=== PATIENT | male | born 1995 | race Asian ===

== ENCOUNTER 2017-08-31 19:18 | Emergency (ER) | payer SELFPAY ==
[~2017-08-31] VITALS: Ht 160 cm; Wt 61.2 kg
--- NOTE | 2017-08-31 19:41 | PHYS DOC ---
Past Medical History Past Medical History: No Pertinent History Past Surgical History: No Surgical History Alcohol Use: None Drug Use: None Adult General Chief Complaint Chief Complaint: ABDOMINAL PAIN HPI HPI Patient is a 21 year old male presenting to the emergency department for evaluation of abdominal pain nausea and vomiting that has been going on for 3 weeks persistently. Pain is primarily epigastric sharp with no radiation but is causing him nonbloody nonbilious emesis. He says that he has been taking ibuprofen daily for the pain but seemed to make his pain worse. His any fevers chills diarrhea constipation dysuria hematuria or testicular pain. He denies any prior abdominal surgeries and he does not smoke drink or use drugs. He is in no obvious distress with normal vital signs. Review of Systems Review of Systems Constitutional: Denies fever. + chills [] Eyes: Denies change in visual acuity, redness, or eye pain [] HENT: Denies nasal congestion or sore throat [] Respiratory: Denies cough or shortness of breath [] Cardiovascular: No additional information not addressed in HPI [] GI: + abdominal pain, nausea, vomiting. No bloody stools or diarrhea [] : Denies dysuria or hematuria [] Musculoskeletal: Denies back pain or joint pain [] Integument: Denies rash or skin lesions [] Neurologic: Denies headache, focal weakness or sensory changes [] All other systems were reviewed and found to be within normal limits, except as documented in this note. Current Medications Current Medications Current Medications Medications (Trade) Dose Ordered Sig/Jana Start Time Stop Time Status Last Admin Dose Admin Fentanyl Citrate (Fentanyl 2ml Vial) 50 mcg 1X ONCE 08/31/17 19:45 08/31/17 19:46 DC 08/31/17 19:58 50 MCG Info (Do NOT chart on this entry -- for MONITORING) 1 each PRN DAILY PRN 08/31/17 19:45 09/02/17 19:44 Iohexol (Omnipaque 300 Mg/ml) 75 ml 1X ONCE 08/31/17 19:45 08/31/17 19:46 DC 08/31/17 20:12 75 ML Multi-Ingredient Mouthwash/Gargle (Gi Cocktail Single Dose) 15 ml 1X ONCE 08/31/17 19:45 08/31/17 19:46 DC 08/31/17 19:56 15 ML Ondansetron HCl (Zofran) 8 mg 1X ONCE 08/31/17 19:45 08/31/17 19:46 DC 08/31/17 20:02 8 MG Pantoprazole Sodium (PROTONIX VIAL for IV PUSH) 40 mg 1X ONCE 08/31/17 19:45 08/31/17 19:46 DC 08/31/17 20:02 40 MG Sodium Chloride 1,000 ml @ 1,000 mls/hr 1X ONCE 08/31/17 19:45 08/31/17 20:44 DC 08/31/17 19:45 1,000 MLS/HR Allergies Allergies Allergies Coded Allergies Type Severity Reaction Last Updated Verified No Known Drug Allergies 08/31/17 No Physical Exam Physical Exam Constitutional: Well developed, well nourished, no acute distress, non-toxic appearance. [] HENT: Normocephalic, atraumatic, bilateral external ears normal, oropharynx moist, no oral exudates, nose normal. [] Eyes: PERRLA, EOMI, conjunctiva normal, no discharge. [] Neck: Normal range of motion, no tenderness, supple, no stridor. [] Cardiovascular:Heart rate regular rhythm, no murmur [] Lungs & Thorax: Bilateral breath sounds clear to auscultation [] Abdomen: Bowel sounds normal, soft, + epigastric tenderness, no rebound or guarding, no masses, no pulsatile masses. [] Skin: Warm, dry, no erythema, no rash. [] Back: No tenderness, no CVA tenderness. [] Extremities: No tenderness, no cyanosis, no clubbing, ROM intact, no edema. [] Neurologic: Alert and oriented X 3, normal motor function, normal sensory function, no focal deficits noted. [] Current Patient Data Vital Signs Vital Signs Date Time Temp Pulse Resp B/P (MAP) Pulse Ox O2 Delivery O2 Flow Rate FiO2 08/31/17 20:20 93 18 127/73 (91) 97 Room Air 08/31/17 19:30 97.6 97.6 Lab Values Laboratory Tests Test 08/31/17 19:30 08/31/17 20:16 White Blood Count 12.7 x10^3/uL (4.0-11.0) H Red Blood Count 5.82 x10^6/uL (4.30-5.70) H Hemoglobin 16.6 g/dL (13.0-17.5) Hematocrit 50.2 % (39.0-53.0) Mean Corpuscular Volume 86 fL (79-100) Mean Corpuscular Hemoglobin 29 pg (25-35) Mean Corpuscular Hemoglobin Concent 33 g/dL (31-37) Red Cell Distribution Width 13.4 % (11.5-14.5) Platelet Count 262 x10^3/uL (140-400) Neutrophils (%) (Auto) 61 % (31-73) Lymphocytes (%) (Auto) 29 % (24-48) Monocytes (%) (Auto) 7 % (0-9) Eosinophils (%) (Auto) 2 % (0-3) Basophils (%) (Auto) 1 % (0-3) Neutrophils # (Auto) 7.8 x10^3uL (1.8-7.7) H Lymphocytes # (Auto) 3.6 x10^3/uL (1.0-4.8) Monocytes # (Auto) 0.9 x10^3/uL (0.0-1.1) Eosinophils # (Auto) 0.3 x10^3/uL (0.0-0.7) Basophils # (Auto) 0.1 x10^3/uL (0.0-0.2) Sodium Level 140 mmol/L (136-145) Potassium Level 3.2 mmol/L (3.5-5.1) L Chloride Level 99 mmol/L (98-107) Carbon Dioxide Level 29 mmol/L (21-32) Anion Gap 12 (6-14) Blood Urea Nitrogen 10 mg/dL (8-26) Creatinine 1.0 mg/dL (0.7-1.3) Estimated GFR (Cockcroft-Gault) 96.3 BUN/Creatinine Ratio 10 (6-20) Glucose Level 100 mg/dL (70-99) H Calcium Level 10.0 mg/dL (8.5-10.1) Magnesium Level 2.0 mg/dL (1.8-2.4) Total Bilirubin 0.7 mg/dL (0.2-1.0) Aspartate Amino Transferase (AST) 23 U/L (15-37) Alanine Aminotransferase (ALT) 35 U/L (16-63) Alkaline Phosphatase 65 U/L (46-116) Total Protein 9.0 g/dL (6.4-8.2) H Albumin 5.1 g/dL (3.4-5.0) H Albumin/Globulin Ratio 1.3 (1.0-1.7) Lipase 100 U/L (73-393) Urine Collection Type Unknown Urine Color Yellow Urine Clarity Hazy Urine pH 6.0 Urine Specific Harold >=1.030 Urine Protein Negative mg/dL (NEG-TRACE) Urine Glucose (UA) Negative mg/dL (NEG) Urine Ketones (Stick) Negative mg/dL (NEG) Urine Blood Negative (NEG) Urine Nitrite Negative (NEG) Urine Bilirubin Small (NEG) Urine Urobilinogen Dipstick 1.0 mg/dL (0.2 mg/dL) Urine Leukocyte Esterase Negative (NEG) Urine RBC 0 /HPF (0-2) Urine WBC 0 /HPF (0-4) Urine Bacteria 0 /HPF (0-FEW) Urine Mucus Marked /LPF Laboratory Tests 08/31/17 19:30 Laboratory Tests 08/31/17 19:30 EKG EKG [] Radiology/Procedures Radiology/Procedures [] Course & Med Decision Making Course & Med Decision Making Patient with nonspecific epigastric abdominal pain. We will check labs CT treat symptoms and reassess. Will transfer care to Dr. Velez at 1999. Lab and imaging reviewed. Abdomen remained soft and nontender and reevaluation. No hematemesis or coffee-ground emesis ED. Will treat for gastritis with close PCP follow-up. Return precautions reviewed. Patient verbalizes understanding of discharge instructions prior to departure. Dragon Disclaimer Dragon Disclaimer This electronic medical record was generated, in whole or in part, using a voice recognition dictation system. Departure Departure Impression: Primary Impression: Abdominal pain Additional Impression: Nausea & vomiting Disposition: HOME, SELF-CARE Condition: GOOD Referrals: FARRUKH ESTEBAN MD (PCP) Problem Qualifiers Primary Impression: Abdominal pain Abdominal location: epigastric Qualified Codes: R10.13 - Epigastric pain BHAVNA BUTTERFIELD DO Aug 31, 2017 19:41 ANSELMO VELEZ DO Aug 31, 2017 20:51
[2017-08-31] MEDS ORDERED: PANTOPRAZOLE IV PUSH 40 MG VIAL. IVP ONE (19:45)
[2017-08-31] MEDS ORDERED: IOHEXOL 300 MG/ML 100ML VIAL. IV ONE (19:45)
[2017-08-31] MEDS ORDERED: ONDANSETRON PF 4 MG/2 ML VIAL. IV ONE (19:45)
[2017-08-31] MEDS ORDERED: LIDO:MAALOX:DONNATAL 1:1:1 15 ML SINGLE DOSE SWSW ONE (19:45)
[2017-08-31] MEDS ORDERED: fentaNYL PF VIAL 100 MCG/2 ML VIAL IV ONE (19:45)
[2017-08-31] MEDS ORDERED: CONTRAST GIVEN MC PRN (19:45)
[2017-08-31] MEDS ORDERED: IV NORMAL SALINE 1000ML BAG 1,000 ML IV ONE (19:45)
[2017-08-31 19:52] LABS: BASO # 0.1 x10^3/uL (0.0-0.2); BASO % 1 % (0-3); EOS % 2 % (0-3); HEMATOCRIT 50.2 % (39.0-53.0); HEMOGLOBIN 16.6 g/dL (13.0-17.5); LYMPH # 3.6 x10^3/uL (1.0-4.8); LYMPH % 29 % (24-48); MEAN CORPUSCULAR HEMOGLOBIN 29 pg (25-35); MEAN CORPUSCULAR HGB CONC 33 g/dL (31-37); MEAN CORPUSCULAR VOLUME 86 fL (79-100); MONO % 7 % (0-9); NEUT % 61 % (31-73); PLATELET COUNT 262 x10^3/uL (140-400); RED BLOOD COUNT 5.82 x10^6/uL (4.30-5.70); RED CELL DISTRIBUTION WIDTH 13.4 % (11.5-14.5); WHITE BLOOD COUNT 12.7 x10^3/uL (4.0-11.0)
[2017-08-31 20:02] LABS: GFR 96.3; POTASSIUM 3.2 mmol/L (3.5-5.1)
[2017-08-31 20:08] LABS: ALBUMIN 5.1 g/dL (3.4-5.0); ALBUMIN/GLOBULIN RATIO 1.3 (1.0-1.7); TOTAL BILIRUBIN 0.7 mg/dL (0.2-1.0)
[2017-08-31 20:27] LABS: BILIRUBIN,URINE SMALL (NEG); GLUCOSE,URINE NEGATIVE (NEG); NITRITE,URINE NEGATIVE (NEG); PROTEIN,URINE NEGATIVE (NEG-TRACE)
[2017-08-31 20:32] LABS: BACTERIA,URINE 0 /HPF (0-FEW); RBC,URINE 0 /HPF (0-2); WBC,URINE 0 /HPF (0-4)
--- NOTE | 2017-08-31 20:40 | RAD ---
EXAM: Abdomen and pelvis CT with intravenous contrast. HISTORY: 21-year-old male with upper abdominal pain, nausea and vomiting for 4 days. TECHNIQUE: Computed tomographic images of the abdomen and pelvis were obtained following the administration of 75 cc of Omni 300 intravenous contrast. Multiplanar reformatting was performed. PQRS compliance statement: One or more of the following individualized dose reduction techniques were utilized for this examination: 1. Automated exposure control 2. Adjustment of the mA and/or kV according to patient size 3. Use of iterative reconstruction technique COMPARISON: None. FINDINGS: The lung bases demonstrate no acute finding. A tiny nodule is seen within the visualized right lower lung, likely incidental in this young patient. The liver, spleen, gallbladder, pancreas, adrenal glands and bilateral kidneys demonstrate no focal abnormality. The GI tract demonstrates no dilated bowel loops to suggest obstruction. The appendix is partially visualized abutting the medial posterior aspect of the cecum, appearing normal in caliber. The urinary bladder is mostly decompressed and not well evaluated. No intra-abdominal or pelvic free fluid, free air or significant lymphadenopathy is seen. Aorta is normal in caliber. Overlying soft tissues and visualized osseous structures demonstrate no acute or suspicious finding. IMPRESSION: No acute intra-abdominal or pelvic process seen. Electronically signed by: Trina Campos MD (08/31/2017 8:37 PM) [facility] [id number]
[2017-08-31 20:50] VITALS: BP 111/70
[2017-08-31] MEDS ORDERED: HYDROcodone/APAP 5/325MG 1 TAB TABLET PO ONE (21:15)
== END 2017-08-31 21:10 | disposition home or self-care (01) ==
LOC: ER 19:18
DX: R10.13 Epigastric pain (principal); R11.2 Nausea with vomiting, unspecified
CPT/HCPCS: 36415; 74177; 80053; 81001; 83690; 83735; 85025; 96361; 96374; 96375; 99285; C9113; J2405; J3010; J7030; Q9967

== ENCOUNTER 2020-11-12 18:56 | Emergency (ER) | payer SELFPAY ==
[~2020-11-12] VITALS: Ht 162.6 cm; Wt 80.9 kg
[2020-11-12 19:08] VITALS: BP 118/71
[2020-11-12] MEDS ORDERED: AMOXICILLIN/K CLAV 875/125MG TABLET. PO ONE (19:45)
[2020-11-12] MEDS ORDERED: PSEUDOEPHEDRINE 30 MG TABLET. PO PRN (19:45)
[2020-11-12] MEDS ORDERED: HYDROcodone/APAP 5/325MG 1 TAB TABLET PO ONE (19:45)
[2020-11-12] MEDS ORDERED: AMOX1TAB61 PO (20:01)
[2020-11-12] MEDS ORDERED: IBUP-1007 PO (20:01)
--- NOTE | 2020-11-12 20:02 | PHYS DOC ---
Past Medical History Past Medical History: No Pertinent History Past Surgical History: No Surgical History Smoking Status: Never Smoker Alcohol Use: None Drug Use: None General Adult EDM: Chief Complaint: EARACHE/EAR PAIN HPI: HPI: Patient is a 24 year old male presents emergency department complaining of ri ght ear pain. Patient states that he has had ear pain on the right side for the past week. Patient states he has been putting earwax removal drops in his ears and cleaning them out with Q-tips. Patient states he had a sudden onset of pain to his right ear when he was cleaning with a Q-tip. Patient denies any loss of hearing to his right ear, patient denies loss of hearing to either ear. Patient denies any dizziness or neurological changes. Patient denies any sore throat cough or congestion. Patient denies any recent illnesses. Patient denies chest pain, shortness of breath. Patient denies nausea vomiting diarrhea or rashes of her skin. Patient states she has not had a flu shot nor has he had a COVID-19 virus immunization this year. Patient rates his pain a 7/10 on a 1-10 pain scale. Review of Systems: Review of Systems: 14 body systems of review of systems have been reviewed. See HPI for pertinent positives and negative responses, otherwise all other systems are negative, nonpertinent or noncontributory. Heart Score: Risk Factors: Risk Factors: DM, Current or recent (<one month) smoker, HTN, HLP, family history of CAD, obesity. Risk Scores: Score 0 - 3: 2.5% MACE over next 6 weeks - Discharge Home Score 4 - 6: 20.3% MACE over next 6 weeks - Admit for Clinical Observation Score 7 - 10: 72.7% MACE over next 6 weeks - Early Invasive Strategies Allergies: Allergies: Allergies Coded Allergies Type Severity Reaction Last Updated Verified No Known Drug Allergies 08/31/17 No Physical Exam: PE: Constitutional: Well developed, well nourished, no acute distress, non-toxic appearance. HENT: Normocephalic, atraumatic, bilateral external ears normal, oropharynx moist, no oral exudates, nose normal. Left TM serous otitis media with effusion without purulent drainage or disruption of the tympanic membrane, right TM otitis media with effusion with purulent drainage, barotrauma to the 11 o'clock position. Eyes: PERRLA, EOMI, conjunctiva normal, no discharge. Neck: Normal range of motion, no tenderness, supple, no stridor. Cardiovascular:Heart rate regular rhythm, no murmur Lungs & Thorax: Bilateral breath sounds clear to auscultation Abdomen: Bowel sounds normal, soft, no tenderness, no masses, no pulsatile masses. Skin: Warm, dry, no erythema, no rash. Back: No tenderness, no CVA tenderness. Extremities: No tenderness, no cyanosis, no clubbing, ROM intact, no edema. Neurologic: Alert and oriented X 3, normal motor function, normal sensory function, no focal deficits noted. Psychologic: Affect normal, judgement normal, mood normal. Current Patient Data: Vital Signs: Vital Signs Date Time Temp Pulse Resp B/P (MAP) Pulse Ox O2 Delivery O2 Flow Rate FiO2 11/12/20 19:08 97.9 78 15 118/71 (87) 100 Room Air 97.9 EKG: EKG: [] Radiology/Procedures: Radiology/Procedures: [] Course & Med Decision Making: Course & Med Decision Making Pertinent Labs and Imaging studies reviewed. (See chart for details) 24-year-old male, vital signs reviewed, presents emergency department complaint of right ear pain. Examination concerning for barotrauma, patient states that he did stick a Q-tip in his ear and noticed a sudden onset of acute increased pain. Left TM concerning for serous otitis media without with effusion without purulent drainage, right TM showed a serous otitis media with effusion with purulent drainage from 11 o'clock position. Discussed findings with patient, encourage patient to not put any more eardrops into either ear, strongly encourage patient to not use Q-tips in the ear or any other cleaning utensils for his ears. Will start patient on Augmentin, Sudafed, ibuprofen, patient is to follow-up with ENT tomorrow or as soon as possible for reexamination of his right ear. Patient gave verbal understanding of discharge home instructions, follow-up with ENT tomorrow, return to ER precautions or concerns, had no further questions or concerns and was discharged home without incident. Shakilaon Disclaimer: Candi Disclaimer: This electronic medical record was generated, in whole or in part, using a voice recognition dictation system. Departure Departure Impression: Primary Impression: Serous otitis media of right ear with rupture of tympanic membrane Additional Impression: Serous otitis media Qualified Codes: H65.02 - Acute serous otitis media, left ear Disposition: 01 DC HOME SELF CARE/HOMELESS Condition: GOOD Referrals: FARRUKH ESTEBAN MD (PCP) YUSEF STANLEY MD, COLLEEN N MD Patient Instructions: Otitis Media with Effusion Additional Instructions: Please take antibiotic as prescribed, please contact an ENT specialist either Dr. Garcia or Dr. Link tomorrow for reexamination of your right ear. Do not place anything in either ear, do not get either ear wet. Do not use any eardrops in either ear until directed otherwise by a ENT specialist. Please return the emergency department for worsening symptoms or other concerns. Please purchase some [id number] Sudafed and take as directed, it should be behind the counter at the pharmacy, just ask your pharmacist about Sudafed. Tell your pharmacist that this for decongestant use EMERGENCY DEPARTMENT GENERAL DISCHARGE INSTRUCTIONS Thank you for coming to [facility] Emergency Department (ED) to day and trusting us with you care. We trust that you had a positive experience in our Emergency Department. If you wish to speak to the department management, you may call the Director at [phone]. YOUR FOLLOW UP INSTRUCTIONS ARE FOLLOWS: 1. Do you have a private Doctor? If you do not have a private doctor, please ask for a resource list of physicians or clinics that may be able to assist you with follow up care. 2. The Emergency Physicain has interpreted your x-rays. The X-Ray specialist will also review them. If there is a change in the findings, you will be notified in 48 hours when at all possible. 3. A lab test or culture has been done, your results will be reviewed and you will be notified if you need a change in treatment. ADDITIONAL INSTRUCTIONS AND INFORMATION: 1. Your care today has been supervised by a physician who is specially trained in emergency care. Many problems require more than one evaluation for a complete diagnosis and treatment. We recommend that you schedule your follow up appointment as recommended to ensure complete treatment of you illness or injury. If you are unable to obtain follow up care and continue to have a problem, or if your condition worsens, we recommend that you return to the ED. 2. We are not able to safely determine your condition over the phone nor are we able to give sound medical advice over the phone. For these safety reasons, if you call for medical advice we will ask you to come to the ED for further evaluation. 3. If you have any questions regarding these discharge instructions please call the ED at [phone]. SAFETY INFORMATION: In the interest of safety, wellness, and injury prevention; we encourage you to wear your sealbelt, if you smoke; quite smoking, and we encourage family to use a protective helmet for bicycling and other sporting events that present an increased risk for head injury. IF YOUR SYMPTOMS WORSEN OR NEW SYMPTOMS DEVELOP, OR YOU HAVE CONCERNS ABOUT YOUR CONDITION; OR IF YOUR CONDITION WORSENS WHILE YOU ARE WAITING FOR YOUR FOLLOW UP APPOINTMENT; EITHER CONTACT YOUR PRIMARY CARE DOCTOR, THE PHYSICIAN WHOSE NAME AND NUMBER YOU WERE GIVEN, OR RETURN TO THE ED IMMEDIATELY. Scripts Ibuprofen (IBUPROFEN) 600 Mg Tablet 600 MG PO PRN Q6HRS PRN for INFLAMMATION, #20 TAB 0 Refills Prov: BRANDON GUNTER APRN 11/12/20 Amoxicillin/Potassium Clav (AUGMENTIN 875-125 TABLET) 1 Each Tablet 1 TAB PO BID for EAR INFECTION for 7 Days, #14 TAB 0 Refills Prov: BRANDON GUNTER APRN 11/12/20 BRANDON GUNTER APRN Nov 12, 2020 20:02
== END 2020-11-12 20:20 | disposition home or self-care (01) ==
LOC: ER 18:56
DX: H65.01 Acute serous otitis media, right ear (principal)
CPT/HCPCS: 99284